=== PATIENT | female | born 1980 | race Caucasian/White ===

== ENCOUNTER 2020-11-04 05:06 | Emergency (ER) | payer OTHER ==
[~2020-11-04] VITALS: Ht 157.5 cm; Wt 117.0 kg
[2020-11-04 06:50] VITALS: BP 135/89; TEMP 98.9
--- NOTE | 2020-11-08 08:13 | NUR ---
0813- PATIENT NOTIFIED OF COVID RESULTS. PATIENT VERBALIZES UNDERSTANDING. PATIENT REQUESTED COPY OF TEST. TRANSFERED CALL TO MEDICAL RECORDS.
== END 2020-11-04 06:52 | disposition home or self-care (01) ==
LOC: ED 05:06
DX: J02.8 Acute pharyngitis due to other specified organisms (principal); U07.1 COVID-19
CPT/HCPCS: 87635; 87651; 99283; U0003